=== PATIENT | female | born 1965 | race Two or more races ===

== ENCOUNTER 2016-12-31 19:01 | Emergency (ER) | payer OTHER ==
[~2016-12-31] VITALS: Ht 170.2 cm; Wt 77.1 kg
[~2016-12-31 19:01] MED LIST: ALBU8.5H6 INH; FLUT12HF2 IH; GABA-586 PO
[2016-12-31 19:25] VITALS: BP 152/86
[2016-12-31] MEDS ORDERED: PROAIR RESPICL90 MCG IH (19:36)
[2016-12-31] MEDS ORDERED: AMOX875T PO (19:36)
[2016-12-31] MEDS ORDERED: BENZ100C PO (19:36)
--- NOTE | 2016-12-31 19:36 | PHYS DOC ---
Past Medical History Past Medical History: Asthma, Bronchitis, Fibromyalgia Past Surgical History: Appendectomy, Hysterectomy, Tonsillectomy, Tubal ligation Alcohol Use: Occasionally Drug Use: None Adult General Chief Complaint Chief Complaint: Congestion HPI HPI Patient is a 51 year old female with history of fibromyalgia, bronchitis, who presents today with right ear pain sore throat and a cough for 1 week. Patient denies any chest pain or shortness of breath. She states she's had subjective fevers on and off for the last 1 week. She states she is currently a smoker. Review of Systems Review of Systems Constitutional: Subjective fevers Eyes: Denies change in visual acuity, redness, or eye pain [] HENT: Right ear pain and sore throat [] Respiratory: cough Cardiovascular: No additional information not addressed in HPI [] GI: Denies abdominal pain, nausea, vomiting, bloody stools or diarrhea [] : Denies dysuria or hematuria [] Musculoskeletal: Denies back pain or joint pain [] Integument: Denies rash or skin lesions [] Neurologic: Denies headache, focal weakness or sensory changes [] Endocrine: Denies polyuria or polydipsia [] Allergies Allergies Allergies Coded Allergies Type Severity Reaction Last Updated Verified No Known Drug Allergies 05/24/14 No Physical Exam Physical Exam Constitutional: Well developed, well nourished, no acute distress, non-toxic appearance. [] HENT: Normocephalic, atraumatic, bilateral external ears normal, oropharynx moist, no oral exudates, nose normal. [] Patient's voice is hoarse. Bilateral TM are mildly injected. Posterior pharynx with mild amount of erythema no exudate Eyes: PERRLA, EOMI, conjunctiva normal, no discharge. [] Neck: Normal range of motion, no tenderness, supple, no stridor. [] Cardiovascular:Heart rate regular rhythm, no murmur [] Lungs & Thorax: Bilateral breath sounds clear to auscultation [] Abdomen: Bowel sounds normal, soft, no tenderness, no masses, no pulsatile masses. [] Skin: Warm, dry, no erythema, no rash. [] Back: No tenderness, no CVA tenderness. [] Extremities: No tenderness, no cyanosis, no clubbing, ROM intact, no edema. [] Neurologic: Alert and oriented X 3, normal motor function, normal sensory function, no focal deficits noted. [] Psychologic: Affect normal, judgement normal, mood normal. [] Current Patient Data Vital Signs Vital Signs Date Time Temp Pulse Resp B/P Pulse Ox O2 Delivery O2 Flow Rate FiO2 12/31/16 19:25 99.1 103 20 98 Room Air 99.1 EKG EKG [] Radiology/Procedures Radiology/Procedures [] Course & Med Decision Making Course & Med Decision Making Pertinent Labs and Imaging studies reviewed. (See chart for details) Patient is in the ED with laryngitis, otitis media, bronchitis, and subjective fevers. Discharged with amoxicillin for 10 days. Encouraged to consider smoking cessation. Discharged with Tessalon Perles for coughing and albuterol inhaler. Follow-up with PCP in one week. Katharina Disclaimer Katharina Disclaimer This electronic medical record was generated, in whole or in part, using a voice recognition dictation system. Departure Departure Impression: Primary Impression: Otitis media Additional Impressions: Laryngitis Fever Bronchitis Smoking addiction Disposition: 01 HOME, SELF-CARE Condition: STABLE Referrals: NO PCP (PCP) Follow-up with your own doctor in one week Patient Instructions: Acute Bronchitis, Otitis Media, Adult Additional Instructions: You have laryngitis, otitis, and ear infection. Please complete your antibiotics. Use the rest of the medications as prescribed. Consider smoking cessation. Follow-up with your doctor in one week. Come back to the ED if symptoms worsen. Scripts Acetaminophen With Codeine (Tylenol With Codeine #3 Tablet)1 Each Tablet1 Tab PO PRN Q6HRS PRN PAIN #20 TAB Prov:PAUL WILD COAT OPERATOR INSULATOR 12/31/16 Amoxicillin 875 Mg Tablet1 Tab PO BID #20 TAB Prov:MUTOSKARAPAUL COAT OPERATOR INSULATOR 12/31/16 Benzonatate (Tessalon Perle)100 Mg Capsule1 Cap PO TID #30 CAP Prov:MUTUNGAPAUL COAT OPERATOR INSULATOR 12/31/16 Albuterol Sulfate (Proair Respiclick)90 Mcg Aer.pow.ba1 Puff IH PRN Q6HRS PRN SHORTNESS OF BREATH #1 INHALER Prov:NIRMALAPAUL FLOWERS COAT OPERATOR INSULATOR 12/31/16 Problem Qualifiers Primary Impression: Otitis media Otitis media type: other nonsuppurative Laterality: bilateral Chronicity: acute Recurrence: not specified as recurrent Qualified Code: H65.193 - Other acute nonsuppurative otitis media, bilateral Additional Impressions: Fever Fever type: unspecified Qualified Code: R50.9 - Fever, unspecified PAUL WILD APRN Dec 31, 2016 19:36
[2016-12-31] MEDS ORDERED: ACET-704 PO (19:40)
== END 2016-12-31 20:15 | disposition home or self-care (01) ==
LOC: ER 19:01
DX: J40 Bronchitis, not specified as acute or chronic (principal); H66.93 Otitis media, unspecified, bilateral; J04.0 Acute laryngitis; F17.200 Nicotine dependence, unspecified, uncomplicated; J45.909 Unspecified asthma, uncomplicated; M79.7 Fibromyalgia; Z90.89 Acquired absence of other organs
CPT/HCPCS: 99283

== ENCOUNTER 2017-04-04 15:26 | Emergency (ER) | payer OTHER ==
[~2017-04-04] VITALS: Ht 172.7 cm; Wt 77.1 kg
[~2017-04-04 15:26] MED LIST changes: +ACET-704 PO; +AMOX875T PO; +BENZ100C PO; +PROAIR RESPICL90 MCG IH
[2017-04-04 16:15] VITALS: BP 134/85
--- NOTE | 2017-04-04 17:08 | RAD ---
Three-view left foot radiographs 04/04/2017 Clinical history: Anterior left foot pain and discomfort with toe numbness. AP, oblique and lateral digital radiographs of the left foot were obtained. Mild hallux obvious deformity is noted. Mild to moderate degenerative changes are seen throughout the interphalangeal joints of the left foot. Moderate degenerative changes are seen involving the first MTP joint. Mild to moderate degenerative changes are seen involving the fifth MTP joint. Mild degenerative changes are seen involving the talonavicular, tarsometatarsal and metatarsal joints of the left foot. Moderate enthesophyte formation is seen involving the posterior left calcaneus. No fracture or dislocation left foot is seen. Impression: Degenerative changes are seen involving the left foot as outlined above. No acute osseous abnormality is seen.
--- NOTE | 2017-04-04 17:41 | PHYS DOC ---
Past Medical History Past Medical History: Asthma, Bronchitis, Fibromyalgia Past Surgical History: Appendectomy, Hysterectomy, Tonsillectomy, Tubal ligation Additional Past Surgical Histo: hernia Alcohol Use: Occasionally Drug Use: None Adult General Chief Complaint Chief Complaint: FOOT INJURY PAIN [facility] HPI Patient is a 51 year old presents emergency department stating she has having left foot pain and discomfort. Patient states that she went to stand up and start walking she developed foot pain on the metatarsal tarsal areas. She states that there is slight swelling with discoloration. There is no tingling to the toes although she states they are little numb. She is able to ambulate with a limp. She does have good sensation to all of her toes. She has not taken anything for pain and discomfort. Review of Systems Review of Systems Constitutional: Denies fever or chills [] Eyes: Denies change in visual acuity, redness, or eye pain [] HENT: Denies nasal congestion or sore throat [] Respiratory: Denies cough or shortness of breath [] Cardiovascular: No additional information not addressed in HPI [] GI: Denies abdominal pain, nausea, vomiting, bloody stools or diarrhea [] : Denies dysuria or hematuria [] Musculoskeletal: Denies back pain. C/o left foot pain and discomfort Integument: Denies rash or skin lesions [] Neurologic: Denies headache, focal weakness or sensory changes [] Endocrine: Denies polyuria or polydipsia [] Allergies Allergies Allergies Coded Allergies Type Severity Reaction Last Updated Verified No Known Drug Allergies 05/24/14 No Physical Exam Physical Exam Constitutional: Well developed, well nourished, no acute distress, non-toxic appearance. [] HENT: Normocephalic, atraumatic, bilateral external ears normal, oropharynx moist, no oral exudates, nose normal. [] Eyes: PERRLA, EOMI, conjunctiva normal, no discharge. [] Neck: Normal range of motion, no tenderness, supple, no stridor. [] Cardiovascular:Heart rate regular rhythm Lungs & Thorax: No respiratory distress noted Skin: Warm, dry, no erythema, no rash. [] Back: No tenderness Extremities: Left foot tenderness, no cyanosis, no clubbing, ROM intact, no edema. Patient has slight swelling noted over the metatarsal tarsal areas. Slight discoloration noted. Peripheral pulses are 2+ cap refill brisk less than 2 seconds. Patient with good sensation to the toes. Neurologic: Alert and oriented X 3, normal motor function, normal sensory function, no focal deficits noted. [] Psychologic: Affect normal, judgement normal, mood normal. [] Current Patient Data Vital Signs Vital Signs Date Time Temp Pulse Resp B/P (MAP) Pulse Ox O2 Delivery O2 Flow Rate FiO2 04/04/17 16:15 98.0 89 16 97 Room Air 98.0 EKG EKG [] Radiology/Procedures Radiology/Procedures [facility] [address] [place] [address] IMAGING REPORT Signed PATIENT: COLBY FOSTER ACCOUNT: [id number] : 1965 LOCATION: ER AGE: 51 SEX: F EXAM STATUS: REG ER ORD. PHYSICIAN: CARLOS BENAVIDES APRN REASON: left foot pain and discomfort PROCEDURE: FOOT LEFT 3V Three-view left foot radiographs 04/04/2017 Clinical history: Anterior left foot pain and discomfort with toe numbness. AP, oblique and lateral digital radiographs of the left foot were obtained. Mild hallux obvious deformity is noted. Mild to moderate degenerative changes are seen throughout the interphalangeal joints of the left foot. Moderate degenerative changes are seen involving the first MTP joint. Mild to moderate degenerative changes are seen involving the fifth MTP joint. Mild degenerative changes are seen involving the talonavicular, tarsometatarsal and metatarsal joints of the left foot. Moderate enthesophyte formation is seen involving the posterior left calcaneus. No fracture or dislocation left foot is seen. Impression: Degenerative changes are seen involving the left foot as outlined above. No acute osseous abnormality is seen. DICTATED and SIGNED BY: EDGAR GALVEZ MD DATE: 04/04/17 5628 CC: CARLOS BENAVIDES APRN; NO PCP; NON,STAFF ~ [] Course & Med Decision Making Course & Med Decision Making Pertinent Labs and Imaging studies reviewed. (See chart for details) X-ray were negative for any bony abnormalities. Patient will be recommended to use an Main wrap for pain and discomfort. Ice packs on 20 minutes off 20 minutes several times a day elevation as much as possible. She'll be provided with orthopedic name and number to follow up with. Signs and symptoms to return back to emergency department as been provided. [] Katharina Disclaimer Dragon Disclaimer This electronic medical record was generated, in whole or in part, using a voice recognition dictation system. Departure Departure Impression: Primary Impression: Left foot pain Disposition: HOME, SELF-CARE Condition: STABLE Referrals: NO PCP (PCP) Patient Instructions: Foot Contusion, [id number] Additional Instructions: Activity as tolerated. Tylenol or ibuprofen for pain and discomfort. Ice packs on 20 minutes off treatment several times a day. Elevation as much as possible. Follow-up with an orthopedic in the next week if he continued have pain and discomfort. Return back to emergency department sign symptoms of become worse. CARLOS BENAVIDES CLAIMS ADJUSTER Apr 04, 2017 17:41
== END 2017-04-04 17:51 | disposition home or self-care (01) ==
LOC: ER 15:26
DX: M79.672 Pain in left foot (principal); J45.909 Unspecified asthma, uncomplicated; M79.7 Fibromyalgia; Z90.710 Acquired absence of both cervix and uterus; Z90.49 Acquired absence of other specified parts of digestive tract; Z98.51 Tubal ligation status
CPT/HCPCS: 73630; 99284

== ENCOUNTER 2017-06-07 12:32 | Emergency (ER) | payer OTHER ==
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
[2017-06-07] MEDS ORDERED: IBUP-1007 PO (14:24)
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
[2017-06-07 14:45] VITALS: BP 172/89
[2017-06-07] MEDS ORDERED: IBUPROFEN 600 MG TABLET. PO ONE (15:00)
== END 2017-06-07 14:45 | disposition home or self-care (01) ==
LOC: ER 12:32
DX: J70.5 Respiratory conditions due to smoke inhalation (principal); F17.200 Nicotine dependence, unspecified, uncomplicated; R07.89 Other chest pain; J45.909 Unspecified asthma, uncomplicated; M79.7 Fibromyalgia; Z90.710 Acquired absence of both cervix and uterus; Z90.49 Acquired absence of other specified parts of digestive tract; Z98.51 Tubal ligation status
CPT/HCPCS: 71020; 99284-25

== ENCOUNTER 2017-06-14 19:35 | Inpatient (IN) | payer OTHER ==
[~2017-06-14] VITALS: Ht 167.6 cm; Wt 79.9 kg
[~2017-06-14 19:35] MED LIST changes: +IBUP-1007 PO
[2017-06-14] MEDS ORDERED: NITROGLYCERIN SUBLINGUAL 0.4 MG BOTTLE OF 25. SL PRN (19:45)
[2017-06-14] MEDS ORDERED: IPRATRPIUM/ALBUTEROL 0.5/2.5MG 3 ML NEBU. NEB ONE ×2 (19:45→20:45)
--- NOTE | 2017-06-14 19:45 | PHYS DOC ---
Past Medical History Past Medical History: Asthma, Bronchitis, Fibromyalgia Past Surgical History: Appendectomy, Hysterectomy, Tonsillectomy, Tubal ligation Additional Past Surgical Histo: hernia Alcohol Use: Occasionally Drug Use: None Adult General Chief Complaint Chief Complaint: CHEST PAIN HPI HPI Patient is a 51 year old -[place] female who presents with shortness of breath and right-sided chest pain. She states it started yesterday is been getting worse. She states she is also having pain in her right shoulder blade all the pains been constant since yesterday been progressively getting worse. She states is never gone away. She's been out of her albuterol inhaler the last month. She denies any history of coronary disease and states she's never had any kind of evaluation of her coronary arteries in the past. She does smoke cigarettes. EMS provided breathing treatment and around states her lungs sounds have cleared up. Review of Systems Review of Systems Constitutional: Denies fever or chills [] Eyes: Denies change in visual acuity, redness, or eye pain [] HENT: Denies nasal congestion or sore throat [] Respiratory: Positive for shortness of breath. Cardiovascular: No additional information not addressed in HPI [] GI: Denies abdominal pain, nausea, vomiting, bloody stools or diarrhea [] : Denies dysuria or hematuria [] Musculoskeletal: Denies back pain or joint pain [] Integument: Denies rash or skin lesions [] Neurologic: Denies headache, focal weakness or sensory changes [] Endocrine: Denies polyuria or polydipsia [] Current Medications Current Medications Current Medications Medications (Trade) Dose Ordered Sig/Marie Start Time Stop Time Status Last Admin Dose Admin Albuterol/ Ipratropium (Duoneb) 3 ml 1X ONCE 06/14/17 20:45 06/14/17 20:46 DC 06/14/17 20:51 3 ML Azithromycin 250 ml @ 250 mls/hr 1X ONCE 06/14/17 21:15 06/14/17 22:14 UNV Methylprednisolone Sodium Succinate (SOLU-Medrol 125MG VIAL) 125 mg 1X ONCE 06/14/17 20:45 06/14/17 20:46 DC 06/14/17 20:45 125 MG Nitroglycerin (Nitrostat) 0.4 mg PRN Q5MIN PRN 06/14/17 19:45 06/15/17 19:44 Allergies Allergies Allergies Coded Allergies Type Severity Reaction Last Updated Verified No Known Drug Allergies 05/24/14 No Physical Exam Physical Exam Constitutional: Well developed, well nourished, no acute distress, non-toxic appearance. [] HENT: Normocephalic, atraumatic, bilateral external ears normal, oropharynx moist, no oral exudates, nose normal. [] Eyes: PERRLA, EOMI, conjunctiva normal, no discharge. [] Neck: Normal range of motion, no tenderness, supple, no stridor. [] Cardiovascular:Heart rate regular rhythm, no murmur [] Lungs & Thorax: Decreased breath sounds bilaterally at the bases, no wheezing appreciated Abdomen: Bowel sounds normal, soft, no tenderness, no masses, no pulsatile masses. [] Skin: Warm, dry, no erythema, no rash. [] Back: Tender palpation between the scapula and midline, no obvious deformities or injuries noted, no CVA tenderness. [] Extremities: No tenderness, no cyanosis, no clubbing, ROM intact, no edema. [] Neurologic: Alert and oriented X 3, normal motor function, normal sensory function, no focal deficits noted. [] Psychologic: Affect normal, judgement normal, mood normal. [] Current Patient Data Vital Signs Vital Signs Date Time Temp Pulse Resp B/P (MAP) Pulse Ox O2 Delivery O2 Flow Rate FiO2 06/14/17 20:54 99 20 135/90 (105) Room Air 06/14/17 20:52 99 06/14/17 19:49 97.1 97.1 Lab Values Laboratory Tests Test 06/14/17 20:10 White Blood Count 6.6 x10^3/uL (4.0-11.0) Red Blood Count 4.36 x10^6/uL (3.50-5.40) Hemoglobin 14.2 g/dL (12.0-15.5) Hematocrit 42.1 % (36.0-47.0) Mean Corpuscular Volume 97 fL (79-100) Mean Corpuscular Hemoglobin 33 pg (25-35) Mean Corpuscular Hemoglobin Concent 34 g/dL (31-37) Red Cell Distribution Width 13.0 % (11.5-14.5) Platelet Count 182 x10^3/uL (140-400) Neutrophils (%) (Auto) 53 % (31-73) Lymphocytes (%) (Auto) 38 % (24-48) Monocytes (%) (Auto) 8 % (0-9) Eosinophils (%) (Auto) 1 % (0-3) Basophils (%) (Auto) 1 % (0-3) Neutrophils # (Auto) 3.5 x10^3uL (1.8-7.7) Lymphocytes # (Auto) 2.5 x10^3/uL (1.0-4.8) Monocytes # (Auto) 0.5 x10^3/uL (0.0-1.1) Eosinophils # (Auto) 0.0 x10^3/uL (0.0-0.7) Basophils # (Auto) 0.1 x10^3/uL (0.0-0.2) D-Dimer (Genie) < 0.27 ug/mlFEU Sodium Level 139 mmol/L (136-145) Potassium Level 3.3 mmol/L (3.5-5.1) L Chloride Level 102 mmol/L (98-107) Carbon Dioxide Level 24 mmol/L (21-32) Anion Gap 13 (6-14) Blood Urea Nitrogen 12 mg/dL (7-20) Creatinine 0.6 mg/dL (0.6-1.0) Estimated GFR (Cockcroft-Gault) 128.6 Glucose Level 116 mg/dL (70-99) H Calcium Level 8.9 mg/dL (8.5-10.1) Magnesium Level 1.9 mg/dL (1.8-2.4) Total Bilirubin 0.5 mg/dL (0.2-1.0) Direct Bilirubin 0.1 mg/dL (0.0-0.2) Aspartate Amino Transferase (AST) 12 U/L (15-37) L Alanine Aminotransferase (ALT) 18 U/L (14-59) Alkaline Phosphatase 66 U/L (46-116) Creatine Kinase 87 U/L (26-192) Creatine Kinase MB (Mass) 0.5 ng/mL (0.0-3.6) Creatine Kinase MB Relative Index 0.6 % (0-4) Troponin I Quantitative < 0.017 ng/mL (0.000-0.055) OL-Ucn-X-Type Natriuretic Peptide 20 pg/mL (0-124) Total Protein 7.4 g/dL (6.4-8.2) Albumin 3.8 g/dL (3.4-5.0) Lipase 136 U/L (73-393) Thyroid Stimulating Hormone (TSH) 2.530 uIU/mL (0.358-3.74) Laboratory Tests 06/14/17 20:10 Laboratory Tests 06/14/17 20:10 EKG EKG EKG shows sinus rhythm with first-degree AV block with a SD interval 222 ms, right axis deviation noted, no ST elevations, T-wave inversion noted in 1 and aVL, QTC 4 and 40 ms, as interpreted by me. Radiology/Procedures Radiology/Procedures One view chest x-ray does not show any focal consolidations, bony abnormality, pneumothorax, similar to one taken June 07, 2017, as interpreted by me. Impressions: Wheezing Tobacco abuse Atypical chest pain Course & Med Decision Making Course & Med Decision Making Pertinent Labs and Imaging studies reviewed. (See chart for details) Chest x-ray, EKG, basic labs are nonacute. She is received 2 rounds of breathing treatments and is requiring pain meds for at least a muscle spasm in her right posterior chest wall. D-dimer is negative. We'll admit for likely COPD exacerbation and will start azithromycin in addition we'll repeat serial troponins and give aspirin. Spoke with Dr. Vera, interim orders have been written. Dragon Disclaimer Dragon Disclaimer This electronic medical record was generated, in whole or in part, using a voice recognition dictation system. Departure Departure Impression: Primary Impression: Chest pain Additional Impression: Wheezing Disposition: ADMITTED INPATIENT Admitting Physician: Bijan Vera Condition: STABLE Referrals: NO PCP (PCP) Problem Qualifiers Primary Impression: Chest pain Chest pain type: unspecified Qualified Codes: R07.9 - Chest pain, unspecified MARCELLUS SEARS MD Jun 14, 2017 19:45
[2017-06-14 20:19] LABS: BASO # 0.1 x10^3/uL (0.0-0.2); BASO % 1 % (0-3); EOS % 1 % (0-3); HEMATOCRIT 42.1 % (36.0-47.0); HEMOGLOBIN 14.2 g/dL (12.0-15.5); LYMPH # 2.5 x10^3/uL (1.0-4.8); LYMPH % 38 % (24-48); MEAN CORPUSCULAR HEMOGLOBIN 33 pg (25-35); MEAN CORPUSCULAR HGB CONC 34 g/dL (31-37); MEAN CORPUSCULAR VOLUME 97 fL (79-100); MONO % 8 % (0-9); NEUT % 53 % (31-73); PLATELET COUNT 182 x10^3/uL (140-400); RED BLOOD COUNT 4.36 x10^6/uL (3.50-5.40); WHITE BLOOD COUNT 6.6 x10^3/uL (4.0-11.0)
[2017-06-14 20:28] LABS: CALCIUM 8.9 mg/dL (8.5-10.1); CREATININE 0.6 mg/dL (0.6-1.0); GFR 128.6; POTASSIUM 3.3 mmol/L (3.5-5.1)
[2017-06-14 20:36] LABS: ALBUMIN 3.8 g/dL (3.4-5.0); DIRECT BILIRUBIN 0.1 mg/dL (0.0-0.2); MAGNESIUM 1.9 mg/dL (1.8-2.4); TOTAL BILIRUBIN 0.5 mg/dL (0.2-1.0); TOTAL PROTEIN 7.4 g/dL (6.4-8.2)
[2017-06-14 20:42] LABS: CKMB MASS 0.5 ng/mL (0.0-3.6)
[2017-06-14] MEDS ORDERED: methylPREDNISolone SOD SUCC PF 125 MG/2 ML VIAL. IV ONE (20:45)
[2017-06-14] MEDS ORDERED: AZITHRMYCN 500MG IVPB FOR OMNI 250 ML IV ONE (21:30)
[2017-06-14] MEDS ORDERED: ONDANSETRON PF 4 MG/2 ML VIAL. IV PRN (21:30)
[2017-06-14] MEDS ORDERED: ASPIRIN 325 MG TABLET PO ONE (21:30)
[2017-06-14] MEDS: MORPHINE SULFATE 4 MG/ML DISP.SYRIN. IV PRN (22:02)
[2017-06-14 23:08] VITALS: BP 135/84
[2017-06-15] MEDS ORDERED: CHOL2000 PO (01:30)
[2017-06-15 03:22] VITALS: BP 111/71
[2017-06-15] MEDS: MORPHINE SULFATE 4 MG/ML DISP.SYRIN. IV PRN ×3 (04:19→20:16)
--- NOTE | 2017-06-15 06:12 | EKG ---
[facility] [address] [place] [address] Test Date: 2017-06-14 Test Time: 19:40:15 Pat Name: COLBY FOSTER Department: Room: [facility] Gender: F [employer] Operator: : [id number] Requested By: MARCELLUS SEARS Order Number: [id number] Reading MD: Krishna Amin Measurements Intervals [place] Rate: 91 P: 77 MT: 222 QRS: 172 QRSD: 74 T: 124 QT: 358 QTc: 442 Interpretive Statements SINUS RHYTHM PROLONGED MT INTERVAL LIMB LEAD MISPLACEMENT POSSIBLE SHREE-SEPTAL INFARCT Electronically Signed On 06-19-2017 7:16:32 CDT by Krishna Amin
[2017-06-15 06:52] VITALS: BP_SYST 112; BP_SYST 12; BP_DIAS 55
--- NOTE | 2017-06-15 07:36 | RAD ---
Chest x-ray Indication: Nontraumatic chest pain for one day. Right-sided pain radiating to the right axilla and arm. Technique: Portable AP upright chest x-ray Comparison: Multiple in films dating back to 2009 Findings: Heart is normal in size. Stable oval-shaped opacity seen in the right suprahilar region likely calcified lymph node. This is present dating back to 2010 chest x-ray. Lungs are clear. No pneumothorax or pleural effusion. Visualized bony thorax within normal limits. Impression: No acute cardiopulmonary process.
[2017-06-15 08:52] LABS: BASO % 0 % (0-3); EOS % 0 % (0-3); HEMATOCRIT 40.2 % (36.0-47.0); LYMPH # 0.7 x10^3/uL (1.0-4.8); LYMPH % 11 % (24-48); MEAN CORPUSCULAR HEMOGLOBIN 33 pg (25-35); MEAN CORPUSCULAR HGB CONC 35 g/dL (31-37); MEAN CORPUSCULAR VOLUME 94 fL (79-100); MONO % 2 % (0-9); NEUT % 87 % (31-73); PLATELET COUNT 179 x10^3/uL (140-400); RED BLOOD COUNT 4.27 x10^6/uL (3.50-5.40); WHITE BLOOD COUNT 6.3 x10^3/uL (4.0-11.0)
[2017-06-15 09:07] LABS: CALCIUM 8.7 mg/dL (8.5-10.1); CREATININE 0.6 mg/dL (0.6-1.0); GFR 128.6; POTASSIUM 4.2 mmol/L (3.5-5.1)
[2017-06-15 10:33] LABS: PLT ESTIMATE ADEQUATE (ADEQUATE)
[2017-06-15 10:46] VITALS: BP 118/82
[2017-06-15 14:29] VITALS: BP 118/75
[2017-06-15] MEDS ORDERED: ALBUTEROL SULFATE 2.5 MG/3 ML NEBU. NEB PRN (18:15)
[2017-06-15] MEDS ORDERED: NON FORMULARY ITEM (Albuterol Sulfate (Proair Respiclick) 1 PUFF) IH PRN (18:15)
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
[2017-06-15 19:05] VITALS: BP 126/95
--- NOTE | 2017-06-15 20:15 | PDOC ---
Provider Note Provider Note [id number] dyspne ae of copd acute bronchitis see orders LIZET KWON MD Jun 15, 2017 20:15
[2017-06-15] MEDS: BUDESONIDE 0.5 MG/2 ML NEBU. NEB SCH (20:18)
--- NOTE | 2017-06-15 20:39 | CONS ---
DATE OF CONSULTATION: 06/15/2017 I was asked to see this 51-year-old lady for shortness of breath, chest pain, cough, wheezing. HISTORY OF PRESENT ILLNESS: She does have history of [id number] smoking, continues to smoke about 1-1/2 pack per day. She has had chest tightness and shortness of breath and sharp right-sided chest pain for the past 3 days. She has had chills. She has nasal congestion. She denies gastroesophageal reflux symptoms. PAST MEDICAL HISTORY: COPD, asthma, fibromyalgia, hysterectomy, tonsillectomy, tubal ligation, appendectomy. ALLERGIES: No known drug allergies. MEDICATIONS: She did receive Solu-Medrol and nebulizer treatment in the Emergency Room. SOCIAL HISTORY: History of [id number] smoking, continues to smoke one and half pack per day. FAMILY HISTORY: Mother and sister had COPD. REVIEW OF SYSTEMS: As mentioned as above, other systems otherwise negative. PHYSICAL EXAMINATION: GENERAL: This is a well-developed lady. VITAL SIGNS: Her O2 saturation is 98%, respiratory rate 20, heart rate 76. Blood pressure 126/95, temperature 98.4. HEENT: Normocephalic, atraumatic. Pupils equal, round, reactive to light. Throat is clear. Nose: There is inflamed mucosa. NECK: There is no JVD, lymphadenopathy or thyromegaly. CARDIOVASCULAR: Regular rate and rhythm. PMI is not displaced. CHEST: Inspection is normal. LUNGS: There is end- expiratory wheezing. Percussion is within normal limits. ABDOMEN: Soft. Bowel sounds are good. There is no mass. EXTREMITIES: There is no edema. SKIN: Chronic changes. NEUROLOGIC: Alert and oriented. LYMPHATICS: There is no lymphadenopathy. LABORATORY DATA: I reviewed the following lab data: Chest x-ray does not show infiltrate. There is suprahilar calcified lymph node. WBC 6.3, hemoglobin 14, platelets 179. Sodium 138, potassium 4.2, chloride 103, CO2 25, glucose 133, BUN 10, creatinine 0.6. D-dimer less than 0.27, which is within normal limits. IMPRESSION: 1. Dyspnea and CP. 2. Acute exacerbation of chronic obstructive pulmonary disease. 3. Acute bronchitis. 4. Rhinitis. 5. Tobacco habituation. PLAN AND RECOMMENDATIONS: 1. I had a long discussion with her regarding the smoking cessation. I have advised her to stop smoking forever. 2. Start Solu-Medrol 40 mg IV every 8. 3. Bronchodilator. 4. Inhaled corticosteroid. 5. Singulair. 6. Monitor respiratory status very closely. 7. The findings and recommendations were discussed with the patient and her sister. They understood and agreed to proceed with the plan. Thank you very much for allowing me to participate in care of this very nice lady. LIZET KWON M.D. DR: Tristen JOB#: [id number] / [id number] DAMI
[2017-06-15] MEDS ORDERED: MONTELUKAST SODIUM 10 MG TABLET. PO SCH (21:00)
[2017-06-15] MEDS ORDERED: AZITHROMYCIN 250 MG TABLET. PO ONE (21:00)
[2017-06-15 23:05] VITALS: BP 129/74
--- NOTE | 2017-06-16 00:37 | ACF ---
Admission Forms Criteria CARDIOLOGY GRG Clinical Indications for Admission to Inpatient Care ( [place]/check or initial the applicable condition/criteria) Hospital admission is needed for appropriate care of the patient because of ANY ONE of the following: [ ] I. Hemodynamic instability as indicated by ALL of the following (1)(2)(3) (4)(5)(6)(7)(8)(9)(10) [ ]a) Vital sign abnormality not readily corrected by appropriate treatment with 12-24 hours for ANY ONE: [ ]i) Hypotension that persists despite appropriate treatment (eg, volume repletion) [ ]ii) Tachycardiathat persists despite appropriate tx ( e.g., analgesia, fluids, sedation as indicated [ ]iii) Orthostatic vital sign changes that persists despite appropriate treatment (eg, volume repletion) [ ]b) Vital sign abnormailty that is severe indicated by ANY ONE of the following: [ ]i) Inadequate perfusion indicated by ANY ONE of the following: [ ] 1) Lactic acidosis (> 2 mmol/L) [ ] 2) New abnormal capillary refill (> 3 seconds) [ ] 3) Reduced urine output [ ] 4) New altered mental status [ ] 5) Myocardial Ischemia [ ] 6) Other metabolic acidosis (arterial pH <7.35 ) not otherwise explained. [ ]ii) Mean arterial pressure[A] less than 60 mm Hg [ ]iii) Mean arterial pressure[A] less than 70 mm Hg after 30 minutes of appropriate treatment (eg, fluid resuscitation) [ ]iv) Sustained heart rate greater than 120 beats per minute in adult or child 6 years or older[B] [ ]v) IV inotropic or vasopressor medication required to maintain adequate blood pressure or perfusion [ ] II. Severe heart failure as indicated by ANY ONE of the following(17)(18) [ ]a) Respiratory distress [ ]b) Hypotension [ ]c) Debilitating anasarca refractory to therapy (eg, tissue breakdown with infection)[C](19) [ ]d) Cardiac arrhythmias of immediate concern [ ]e) Myocardial ischemia [ ] III. Cardiac arrhythmias or findings of immediate concern indicated by ANY ONE of the following (21)(22): [ ] a) Heart rhythms that are inherently dangerous or unstable indicated by ANY ONE of the following (23)(24)(25): [ ] i) Resuscitated ventricular fibrillation or cardiac arrest [ ] ii) Ventricular escape rhythm [ ] iii) Sustained ventricular tachycardia (30 seconds or more of ventricular rhythm at greater than 100 beats per minute) [ ] iv) Nonsustained ventricular tachycardia and ANY ONE of the following: [ ] 1) Suspected cardiac ischemia as cause or consequence of ventricular tachycardia [ ] 2) Acute myocarditis [ ] b) Unstable cardiac conduction defects indicated by ANY ONE of the following(25)(26)(27) [ ] i) Type II second-degree atrioventricular block [ ]ii) Third-degree atrioventricular block [ ]iii) New-onset left bundle branch block with suspected myocardial ischemia [ ]c) Any heart rhythm and ANY ONE of the following (23)(24)(28)(29) (30) [ ] i) Continuous long-term ECG monitoring needed (e.g., initiation of drug requiring monitoring for more than 24 hours) [ ] ii) Patient has automatic implanted cardioverter defibrillator that is repeatedly firing, malfunctioning, or in need of immediate adjustment of settings beyond the scope of ambulatory or observation care [ ]d) Heart rhythms of concern due to ANY ONE of the following: [ ] i) Hypotension [ ] ii) Respiratory distress [ ] iii) Association with other significant symptoms (e.g., bradycardia with syncope or ongoing dizziness, supraventricular tachycardia with chest pain (28)(29)(31) [ ] IV. Monitoring for cardiac contusion beyond the scope of observation care needed [A](32)(33)(34) [ ] V. Surgical or device complication (e.g., valve replacement complication , ICD disfunction or pacemaker dysfunction) (49)(50)(51)(52)(53)(54) [ ] . Inpatient palliative care needed. [F](51)(52) Also use Inpatient Palliative Care Criteria [ ] VII. Nonbacterial thrombotic (marantic) endocarditis(43)(44)(55)(56)(57) [X] VIII. Cardiology condition, symptom, or finding for which emergency and observation care has failed or are not considered appropriate. [ ] IX. Acute valvular disease requiring inpatient as indicated by ANY ONE of the following (40)(41) [ ]a) Acute valvular regurgitation (42) [ ]b) Noninfectious valvulitis (43)(44) [ ]c) Obstructive valve thrombosis (45)(46) [ ]d) Paravalvular leak(47)(48) [ ]e) Other significant valvular disorder remaining after emergency or observation level of care (as appropriate) [ ]X. Pericardial disease requiring inpatient treatment as indicated by ANY ONE of the following (35)(36)(37)(38) [ ]a) Suspected tamponade [ ]b) Hemopericardium [ ]c) Other significant pericardial disorder remaining after emergency or observation level of care (as appropriate)(39) [ ] XI. Cardiac ischemia beyond scope of emergency and observation care. [ ] XII. Cyanotic heart disease requiring inpatient care as indicated by 1 or more of the following(58)(59)(60): [ ]a) Acute onset of hypoxemia [ ]b) Exacerbation [ ] XIII. Hypertension requiring inpatient treatment as indicated by ANYONE of the following(11)(12)(13)(14): [ ]a) Severe hypertension (SBP greater than 180 mm Hg or DBP greater than 110 mm Hg, or greater than the 95th percentile for age, gender, and height in pediatric patients) that cannot be controlled (eg, to SBP less than 160 mm Hg and DBP less than 100 mm Hg) by emergency department or observation care treatment(15) [ ]b) Acute end organ damage secondary to hypertension (SBP greater than 140 mm Hg or DBP greater than 90 mm Hg) as indicated by ANYONE of the following: [ ] i) Hypertensive encephalopathy (eg, Altered mental status)(16) [ ] ii) Cerebral infarction [ ] iii) Intracranial hemorrhage [ ] iv) Myocardial ischemia or infarction [ ] v) Heart failure (eg, pulmonary edema) [ ] vi) Aortic dissection [ ] vii) Increased creatinine (new) with reduction of more than 50% in estimated glomerular filtration rate from baseline [ ] viii) Papilledema [ ] ix) Retinal hemorrhage [ ] x) Microangiopathic hemolytic anemia [ ] xi) Seizure [ ] xii) Other significant finding secondary to hypertension [ ] XIV. Complications of transplanted heart indicated by ANY ONE of the following(61): [ ]a) Acute graft rejection requiring inpatient management (eg, intravenous imunosuppression)(62)(63) [ ]b) Acute graft heart failure indicated by ANY ONE of the following(64): [ ] i) Hemodynamic instability [ ] ii) Cardiac arrhythmias of immediate concern [ ] iii) Pulmonary edema that is very severe (eg, mechanical ventilation needed, imminent or likely, need for 100% oxygen to keep oxygen saturation above 90%) [ ] iv) Pulmonary edema that is persistent as indicated by ALL of the following: [ ] 1) New need for oxygen therapy to keep oxygen saturation above 90 % (or increased FiO2 need from baseline) [ ] 2) Has not improved sufficiently with emergency department or observation care IV diuretics or other heart failure treatments[E]. [ ] iv) Altered mental status that is severe or persistent [ ] iv) Increased creatinine (new on laboratory test) with reduction of more than 50% in estimated glomerular filtration rate from baseline [ ] iv) Progressively (ongoing) rising creatinine (known from past laboratory test) with reduction of more than 25% in estimated glomerular filtration rate from baseline [ ] iv) Acute renal failure [ ] iv) Acute peripheral ischemia (eg, examination shows pulseless, cool, mottled, or cyanotic extremity) [ ] iv) Pulmonary artery catheter monitoring needed [ ] iv) Other sign or symptom of heart failure requiring inpatient treatment (ie, too severe or not responsive to outpatient and observation care treatment) [ ]c) Infection requiring inpatient management (eg, Hemodynamic instability, need for intravenous antimicrobial treatment)(66)(67)(68)(69)(70) [ ]d) Cardiac allograft vasculopathy requiring inpatient management (eg evidence of cardiacischemia)(71) [ ]e) Other complication of transplanted heart (eg, stroke, severe pulmonary hypertension, severe valvular dysfunction) requiring inpatient management(72) The original [email or web address] content created by [email or web address] has been revised. The portions of the content which have been revised are identified through the use of italic text, and [facility] has neither reviewed nor approved the modified material. All other unmodified content is copyright [facility] [email or web address]. Please see references footnoted in the original [email or web address] edition 2014 Admission Criteria Met?: Yes LUIS M RAGSDALE Jun 16, 2017 00:37
[2017-06-16 03:05] VITALS: BP 115/80
[2017-06-16 05:37] LABS: BASO % 1 % (0-3); EOS % 0 % (0-3); HEMATOCRIT 40.4 % (36.0-47.0); HEMOGLOBIN 13.7 g/dL (12.0-15.5); LYMPH # 2.4 x10^3/uL (1.0-4.8); LYMPH % 32 % (24-48); MEAN CORPUSCULAR HEMOGLOBIN 32 pg (25-35); MEAN CORPUSCULAR HGB CONC 34 g/dL (31-37); MEAN CORPUSCULAR VOLUME 95 fL (79-100); MONO % 8 % (0-9); NEUT % 59 % (31-73); PLATELET COUNT 182 x10^3/uL (140-400); RED BLOOD COUNT 4.24 x10^6/uL (3.50-5.40); RED CELL DISTRIBUTION WIDTH 12.9 % (11.5-14.5); WHITE BLOOD COUNT 7.5 x10^3/uL (4.0-11.0)
[2017-06-16] MEDS ORDERED: methylPREDNISolone SOD SUCC PF 40 MG/ML VIAL. IV SCH (06:00)
[2017-06-16 06:11] LABS: CALCIUM 8.8 mg/dL (8.5-10.1); CREATININE 0.6 mg/dL (0.6-1.0); GFR 128.6; POTASSIUM 4.1 mmol/L (3.5-5.1)
[2017-06-16 07:06] VITALS: BP 118/84
[2017-06-16] MEDS: IPRATRPIUM/ALBUTEROL 0.5/2.5MG 3 ML NEBU. NEB SCH ×4 (07:30→19:13)
[2017-06-16] MEDS: BUDESONIDE 0.5 MG/2 ML NEBU. NEB SCH ×2 (07:30→19:14)
[2017-06-16] MEDS ORDERED: CHOLECALCIFEROL (VITAMIN D3) 1,000 UNIT TABLET PO SCH (09:00)
[2017-06-16 10:43] VITALS: BP 120/81
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
--- NOTE | 2017-06-16 12:35 | PDOC ---
PULMONARY PROGRESS NOTES Subjective no cp, sob, cough better, no sputum Vitals Vital Signs Date Time Temp Pulse Resp B/P (MAP) Pulse Ox O2 Delivery O2 Flow Rate FiO2 06/16/17 11:54 Room Air 06/16/17 10:43 98.5 97 17 120/81 (94) 96 98.5 ROS: No Nausea, No Chest Pain General: Alert, Oriented X4 HEENT: Other (nc at perrl nose throat clear) Lungs: Clear Cardiovascular: S1, S2 Abdomen: Soft, Non-tender Neuro Exam: Alert Extremities: No Edema Skin: Warm Labs Laboratory Tests Test 06/14/17 20:10 06/15/17 08:15 06/15/17 14:00 06/15/17 21:00 White Blood Count 6.6 x10^3/uL (4.0-11.0) 6.3 x10^3/uL (4.0-11.0) Red Blood Count 4.36 x10^6/uL (3.50-5.40) 4.27 x10^6/uL (3.50-5.40) Hemoglobin 14.2 g/dL (12.0-15.5) 14.0 g/dL (12.0-15.5) Hematocrit 42.1 % (36.0-47.0) 40.2 % (36.0-47.0) Mean Corpuscular Volume 97 fL (79-100) 94 fL (79-100) Mean Corpuscular Hemoglobin 33 pg (25-35) 33 pg (25-35) Mean Corpuscular Hemoglobin Concent 34 g/dL (31-37) 35 g/dL (31-37) Red Cell Distribution Width 13.0 % (11.5-14.5) 13.0 % (11.5-14.5) Platelet Count 182 x10^3/uL (140-400) 179 x10^3/uL (140-400) Neutrophils (%) (Auto) 53 % (31-73) 87 % (31-73) Lymphocytes (%) (Auto) 38 % (24-48) 11 % (24-48) Monocytes (%) (Auto) 8 % (0-9) 2 % (0-9) Eosinophils (%) (Auto) 1 % (0-3) 0 % (0-3) Basophils (%) (Auto) 1 % (0-3) 0 % (0-3) Neutrophils # (Auto) 3.5 x10^3uL (1.8-7.7) 5.5 x10^3uL (1.8-7.7) Lymphocytes # (Auto) 2.5 x10^3/uL (1.0-4.8) 0.7 x10^3/uL (1.0-4.8) Monocytes # (Auto) 0.5 x10^3/uL (0.0-1.1) 0.1 x10^3/uL (0.0-1.1) Eosinophils # (Auto) 0.0 x10^3/uL (0.0-0.7) 0.0 x10^3/uL (0.0-0.7) Basophils # (Auto) 0.1 x10^3/uL (0.0-0.2) 0.0 x10^3/uL (0.0-0.2) D-Dimer (Genie) < 0.27 ug/mlFEU Sodium Level 139 mmol/L (136-145) 138 mmol/L (136-145) Potassium Level 3.3 mmol/L (3.5-5.1) 4.2 mmol/L (3.5-5.1) Chloride Level 102 mmol/L (98-107) 103 mmol/L (98-107) Carbon Dioxide Level 24 mmol/L (21-32) 25 mmol/L (21-32) Anion Gap 13 (6-14) 10 (6-14) Blood Urea Nitrogen 12 mg/dL (7-20) 10 mg/dL (7-20) Creatinine 0.6 mg/dL (0.6-1.0) 0.6 mg/dL (0.6-1.0) Estimated GFR (Cockcroft-Gault) 128.6 128.6 Glucose Level 116 mg/dL (70-99) 133 mg/dL (70-99) Calcium Level 8.9 mg/dL (8.5-10.1) 8.7 mg/dL (8.5-10.1) Magnesium Level 1.9 mg/dL (1.8-2.4) Total Bilirubin 0.5 mg/dL (0.2-1.0) Direct Bilirubin 0.1 mg/dL (0.0-0.2) Aspartate Amino Transf (AST/SGOT) 12 U/L (15-37) Alanine Aminotransferase (ALT/SGPT) 18 U/L (14-59) Alkaline Phosphatase 66 U/L (46-116) Creatine Kinase 87 U/L (26-192) Creatine Kinase MB (Mass) 0.5 ng/mL (0.0-3.6) Creatine Kinase MB Relative Index 0.6 % (0-4) Troponin I Quantitative < 0.017 ng/mL (0.000-0.055) < 0.017 ng/mL (0.000-0.055) < 0.017 ng/mL (0.000-0.055) < 0.017 ng/mL (0.000-0.055) IG-Lwh-P-Type Natriuretic Peptide 20 pg/mL (0-124) Total Protein 7.4 g/dL (6.4-8.2) Albumin 3.8 g/dL (3.4-5.0) Lipase 136 U/L (73-393) Thyroid Stimulating Hormone (TSH) 2.530 uIU/mL (0.358-3.74) Segmented Neutrophils % 88 % (35-66) Lymphocytes % 11 % (24-48) Monocytes % 1 % (0-10) Platelet Estimate Adequate (ADEQUATE) Test 06/16/17 05:00 White Blood Count 7.5 x10^3/uL (4.0-11.0) Red Blood Count 4.24 x10^6/uL (3.50-5.40) Hemoglobin 13.7 g/dL (12.0-15.5) Hematocrit 40.4 % (36.0-47.0) Mean Corpuscular Volume 95 fL (79-100) Mean Corpuscular Hemoglobin 32 pg (25-35) Mean Corpuscular Hemoglobin Concent 34 g/dL (31-37) Red Cell Distribution Width 12.9 % (11.5-14.5) Platelet Count 182 x10^3/uL (140-400) Neutrophils (%) (Auto) 59 % (31-73) Lymphocytes (%) (Auto) 32 % (24-48) Monocytes (%) (Auto) 8 % (0-9) Eosinophils (%) (Auto) 0 % (0-3) Basophils (%) (Auto) 1 % (0-3) Neutrophils # (Auto) 4.5 x10^3uL (1.8-7.7) Lymphocytes # (Auto) 2.4 x10^3/uL (1.0-4.8) Monocytes # (Auto) 0.6 x10^3/uL (0.0-1.1) Eosinophils # (Auto) 0.0 x10^3/uL (0.0-0.7) Basophils # (Auto) 0.0 x10^3/uL (0.0-0.2) Sodium Level 140 mmol/L (136-145) Potassium Level 4.1 mmol/L (3.5-5.1) Chloride Level 103 mmol/L (98-107) Carbon Dioxide Level 26 mmol/L (21-32) Anion Gap 11 (6-14) Blood Urea Nitrogen 16 mg/dL (7-20) Creatinine 0.6 mg/dL (0.6-1.0) Estimated GFR (Cockcroft-Gault) 128.6 Glucose Level 72 mg/dL (70-99) Calcium Level 8.8 mg/dL (8.5-10.1) Laboratory Tests Test 06/15/17 14:00 06/15/17 21:00 06/16/17 05:00 Troponin I Quantitative < 0.017 ng/mL (0.000-0.055) < 0.017 ng/mL (0.000-0.055) White Blood Count 7.5 x10^3/uL (4.0-11.0) Red Blood Count 4.24 x10^6/uL (3.50-5.40) Hemoglobin 13.7 g/dL (12.0-15.5) Hematocrit 40.4 % (36.0-47.0) Mean Corpuscular Volume 95 fL (79-100) Mean Corpuscular Hemoglobin 32 pg (25-35) Mean Corpuscular Hemoglobin Concent 34 g/dL (31-37) Red Cell Distribution Width 12.9 % (11.5-14.5) Platelet Count 182 x10^3/uL (140-400) Neutrophils (%) (Auto) 59 % (31-73) Lymphocytes (%) (Auto) 32 % (24-48) Monocytes (%) (Auto) 8 % (0-9) Eosinophils (%) (Auto) 0 % (0-3) Basophils (%) (Auto) 1 % (0-3) Neutrophils # (Auto) 4.5 x10^3uL (1.8-7.7) Lymphocytes # (Auto) 2.4 x10^3/uL (1.0-4.8) Monocytes # (Auto) 0.6 x10^3/uL (0.0-1.1) Eosinophils # (Auto) 0.0 x10^3/uL (0.0-0.7) Basophils # (Auto) 0.0 x10^3/uL (0.0-0.2) Sodium Level 140 mmol/L (136-145) Potassium Level 4.1 mmol/L (3.5-5.1) Chloride Level 103 mmol/L (98-107) Carbon Dioxide Level 26 mmol/L (21-32) Anion Gap 11 (6-14) Blood Urea Nitrogen 16 mg/dL (7-20) Creatinine 0.6 mg/dL (0.6-1.0) Estimated GFR (Cockcroft-Gault) 128.6 Glucose Level 72 mg/dL (70-99) Calcium Level 8.8 mg/dL (8.5-10.1) Medications Active Scripts Medications Dose Route/Sig Max Daily Dose Days Date Category Vitamin D (Cholecalciferol (Vitamin D3)) 2,000 Unit Capsule 1 Cap PO DAILY 06/15/17 Reported Proair Respiclick (Albuterol Sulfate) 90 Mcg Aer.pow.ba 1 Puff IH PRN Q6HRS PRN 12/31/16 Rx Impression . IMPRESSION: 1. Dyspnea, CP. 2. Acute exacerbation of chronic obstructive pulmonary disease. 3. Acute bronchitis. 4. Rhinitis. 5. Tobacco habituation. Plan . PLAN AND RECOMMENDATIONS: 1. I had a long discussion with her regarding the smoking cessation. I have advised her to stop smoking forever. 2. change Solu-Medrol to prednisone 40 mg daily w taper by 10 mg q 3d 3. Bronchodilator. 4. Inhaled corticosteroid. 5. Singulair. 6. Monitor respiratory status very closely. 7. abx for total of 7 days The findings and recommendations were discussed with the patient and her rn. They understood and agreed to proceed with the plan. LIZET KWON MD Jun 16, 2017 12:35
[2017-06-16] MEDS ORDERED: predniSONE 10 MG TABLET PO SCH (13:00)
[2017-06-16 14:50] VITALS: BP 124/73
[2017-06-16] MEDS ORDERED: AZITHROMYCIN 250 MG TABLET. PO SCH (21:00)
== END 2017-06-16 19:30 | disposition home or self-care (01) | DRG 192 ==
LOC: ER 19:35 → 6 SOUTH 21:00
PROVIDERS: ADMIT Internal Medicine; ATTEND Internal Medicine
DX: J44.0 Chronic obstructive pulmonary disease with (acute) lower respiratory infection (principal); F17.200 Nicotine dependence, unspecified, uncomplicated; J44.1 Chronic obstructive pulmonary disease with (acute) exacerbation; J20.9 Acute bronchitis, unspecified; J31.0 Chronic rhinitis; M79.7 Fibromyalgia; Z82.49 Family history of ischemic heart disease and other diseases of the circulatory system; Z82.5 Family history of asthma and other chronic lower respiratory diseases; Z90.49 Acquired absence of other specified parts of digestive tract; Z90.710 Acquired absence of both cervix and uterus; Z98.51 Tubal ligation status; Z90.89 Acquired absence of other organs
CPT/HCPCS: 36415; 71010; 80048; 80076; 82553; 83690; 83735; 83880; 84443; 84484; 85007; 85025; 85379; 93005; 94250; 94640; 94760; 96361; 96374; 96375; J0456; J2270; J2405; J2920; J2930; J7512; J7613; J7620; J7626; Q0144; 99285-25

== ENCOUNTER 2018-02-19 13:05 | Emergency (ER) | payer SELFPAY, OTHER ==
[2018-02-19] MEDS ORDERED: IOHEXOL 300 MG/ML 100ML VIAL. IV (13:30)
[2018-02-19 13:31] LABS: BILIRUBIN,URINE NEGATIVE (NEG); CLARITY,URINE CLEAR; COLOR,URINE AMBER; GLUCOSE,URINE NEGATIVE (NEG); NITRITE,URINE NEGATIVE (NEG); PROTEIN,URINE NEGATIVE (NEG-TRACE)
[2018-02-19 13:33] LABS: ADD MAN DIFF? NO
[2018-02-19 13:35] LABS: BASO % 1 % (0-3); EOS % 0 % (0-3); HEMOGLOBIN 13.9 g/dL (12.0-15.5); LYMPH # 1.6 x10^3/uL (1.0-4.8); LYMPH % 31 % (24-48); MEAN CORPUSCULAR HEMOGLOBIN 33 pg (25-35); MEAN CORPUSCULAR HGB CONC 34 g/dL (31-37); MEAN CORPUSCULAR VOLUME 97 fL (79-100); MONO # 0.3 x10^3/uL (0.0-1.1); MONO % 7 % (0-9); NEUT # 3.2 x10^3uL (1.8-7.7); NEUT % 61 % (31-73); PLATELET COUNT 210 x10^3/uL (140-400); RED BLOOD COUNT 4.25 x10^6/uL (3.50-5.40); RED CELL DISTRIBUTION WIDTH 14.2 % (11.5-14.5); WHITE BLOOD COUNT 5.3 x10^3/uL (4.0-11.0)
[2018-02-19 13:39] LABS: BACTERIA,URINE FEW /HPF (0-FEW); RBC,URINE RARE /HPF (0-2); SQUAMOUS EPITHELIAL CELL,UR FEW /LPF; WBC,URINE RARE /HPF (0-4)
[2018-02-19] MEDS ORDERED: CONTRAST GIVEN MC (13:45)
[2018-02-19 13:54] LABS: LACTIC ACID 0.9 mmol/L (0.4-2.0)
[2018-02-19 14:01] LABS: ANION GAP 9 (6-14); BLOOD UREA NITROGEN 12 mg/dL (7-20); BUN/CREATININE RATIO 17 (6-20); CALCIUM 8.9 mg/dL (8.5-10.1); CARBON DIOXIDE 29 mmol/L (21-32); CHLORIDE 105 mmol/L (98-107); CREATININE 0.7 mg/dL (0.6-1.0); GFR 107.2; GLUCOSE 91 mg/dL (70-99); POTASSIUM 3.9 mmol/L (3.5-5.1); SODIUM 143 mmol/L (136-145)
[2018-02-19 14:07] LABS: ALBUMIN 3.6 g/dL (3.4-5.0); ALK PHOS 66 U/L (46-116); ALT (SGPT) 25 U/L (14-59); AST (SGOT) 17 U/L (15-37); LIPASE 114 U/L (73-393); TOTAL BILIRUBIN 0.7 mg/dL (0.2-1.0); TOTAL PROTEIN 7.2 g/dL (6.4-8.2)
== END 2018-02-19 16:31 | disposition home or self-care (01) ==
LOC: ER 13:05
DX: R10.84 Generalized abdominal pain (principal); J45.909 Unspecified asthma, uncomplicated; F17.210 Nicotine dependence, cigarettes, uncomplicated; Z90.710 Acquired absence of both cervix and uterus; Z90.49 Acquired absence of other specified parts of digestive tract; Z79.899 Other long term (current) drug therapy
CPT/HCPCS: 36415; 74177; 80053; 81001; 83605; 83690; 85025; 93005; 99285

== ENCOUNTER → 2018-07-26 | Outpatient (CLI) | payer BC ==
[2018-02-19 16:31] VITALS: BP 143/87
[~2018-07-26] MED LIST changes: +CHOL2000 PO
--- NOTE | 2018-07-26 15:52 | RAD ---
DATE: 07/26/2018 EXAM: DIGITAL SCREEN BILAT W/CAD HISTORY: Routine screening COMPARISON: None available This study was interpreted with the benefit of Computerized Aided Detection (CAD). Breast Density: SCATTERED The breast parenchyma shows scattered fibroglandular densities. Breast parenchyma level B. FINDINGS: No breast mass or suspicious densities are seen. A couple of faint scattered microcalcifications are noted. No suspicious microcalcifications are seen. IMPRESSION: There is no mammographic evidence of malignancy in either breast. BI-RADS CATEGORY: 2 BENIGN FINDING(S) RECOMMENDED FOLLOW-UP: 12M 12 MONTH FOLLOW-UP PQRS compliance statement: Patient information was entered into a reminder system with a target due date for the next mammogram. Mammography is a sensitive method for finding small breast cancers, but it does not detect them all and is not a substitute for careful clinical examination. A negative mammogram does not negate a clinically suspicious finding and should not result in delay in biopsying a clinically suspicious abnormality. "Our facility is accredited by the [employer] Mammography Program."
== END | disposition home or self-care (01) ==
LOC: MAMMO 15:15
PROVIDERS: ATTEND Family Medicine
DX: Z12.31 Encounter for screening mammogram for malignant neoplasm of breast (principal)
CPT/HCPCS: 77067

== ENCOUNTER → 2018-08-09 | Day surgery (SDC) | payer BC ==
[~2018-08-09] MED LIST changes: +AMLO1CAP12 PO; +BUPR100T7 PO; +LIDOCAINE 1% PF 2 ML VIAL. ID PRN; +MIDAZOLAM HCL/PF 2 MG/2 ML VIAL. IV PRN; +PROPOFOL 20 ML IV ONE; +PROPOFOL 40 ML IV ONE; +fentaNYL PF VIAL 100 MCG/2 ML VIAL IV PRN
[2018-08-09] MEDS: IV RINGERS,LACTATED 1000ML 1,000 ML IV SCH (06:48)
[2018-08-09 08:28] VITALS: BP 119/68
--- NOTE | 2018-08-12 15:07 | PATHOLOGY ---
[facility] Accession Number: [id number] . 01 Material submitted: . RECTAL POLYP . 01 Clinical history: . Screening . 02 Diagnosis: Colorectal biopsy, rectal polyp: - Hyperplastic polyp showing fibrosis and chronic inflammation of lamina propria. (JPM:production counter; 08/12/2018) MBR/08/12/2018 . 02 Comment: There are no adenomatous changes or evidence of malignancy. (JPM:production counter; 08/12/2018) . 02 Electronically signed: . Jorge Luis Heredia MD, Pathologist NPI- [id number] . 01 Gross description: . Received in formalin labeled "Meenakshi Caba, rectal polyp," is a single segment of delcid soft tissue measuring 0.4 cm in maximum dimension. The specimen is entirely submitted in cassette A1. (TSD; 08/09/2018) TOB/TOB . 02 Pathologist provided ICD-10: K62.1 . 02 CPT . 831507 Specimen Comment: A courtesy copy of this report has been sent to Specimen Comment: [phone], . Specimen Comment: Report sent to / DR OSMAN Specimen Comment: A duplicate report has been generated due to demographic updates. Performed at: 01 [facility] [address], [place], [place] [id number] MD Peyman Pompa MD Phone: [phone] Performed at: 02 [facility] [address] [place], [place] [id number] MD Jorge Luis Heredia MD Phone: [phone]
== END | disposition home or self-care (01) ==
LOC: ENDOS 06:13
PROVIDERS: ATTEND Internal Medicine Gastroenterology
DX: Z12.11 Encounter for screening for malignant neoplasm of colon (principal); K62.1 Rectal polyp; K57.30 Diverticulosis of large intestine without perforation or abscess without bleeding; K64.0 First degree hemorrhoids; I10 Essential (primary) hypertension; M19.90 Unspecified osteoarthritis, unspecified site; D64.9 Anemia, unspecified; J43.9 Emphysema, unspecified; Z80.3 Family history of malignant neoplasm of breast; Z83.3 Family history of diabetes mellitus; Z82.49 Family history of ischemic heart disease and other diseases of the circulatory system; Z72.89 Other problems related to lifestyle; Z79.899 Other long term (current) drug therapy; Z90.710 Acquired absence of both cervix and uterus; Z98.890 Other specified postprocedural states
CPT/HCPCS: 45385; 88305; J2704; 45380

== ENCOUNTER 2019-02-25 10:22 | Emergency (ER) | payer BC ==
[~2019-02-25] VITALS: Ht 171.4 cm; Wt 88.5 kg
[~2019-02-25 10:22] MED LIST changes: -GABA-586 PO; +GABA300C18 PO; -LIDOCAINE 1% PF 2 ML VIAL. ID PRN; -MIDAZOLAM HCL/PF 2 MG/2 ML VIAL. IV PRN; -PROPOFOL 20 ML IV ONE; -PROPOFOL 40 ML IV ONE; -fentaNYL PF VIAL 100 MCG/2 ML VIAL IV PRN
[2019-02-25 11:03] VITALS: BP 139/90
[2019-02-25] MEDS ORDERED: IBUPROFEN 400 MG TABLET. PO ONE (11:15)
--- NOTE | 2019-02-25 12:04 | RAD ---
KNEE RIGHT 4V 02/25/2019 11:14 AM INDICATION: Pain in the right knee COMPARISON: None available. TECHNIQUE: 4 views of the right knee are provided. FINDINGS: There is no acute fracture or dislocation. Bone mineralization is within normal limits. Mild medial femorotibial joint space narrowing with marginal osteophytosis. Medial subcutaneous soft tissue swelling. There is a small knee joint effusion. Patellar enthesopathy is noted. There is no soft tissue gas or osseous erosion. IMPRESSION: No acute fracture or dislocation. Mild medial femorotibial osteoarthrosis. Small knee joint effusion. Electronically signed by: Phuong Coleman MD (02/25/2019 12:01 PM) [email or web address]
--- NOTE | 2019-02-25 12:07 | RAD ---
Right LOWER EXTREMITY ULTRASOUND WITH DOPPLER 02/25/2019 11:14 AM Clinical Information: Calf pain for one month. Comparison: None. Technique: Multiple grayscale, color Doppler, and spectral Doppler sonographic images of the lower extremity venous structures were obtained. Findings: The right common femoral, femoral, and popliteal veins exhibit normal compression, respiratory phasicity, and augmentation. No intraluminal thrombi are identified. Color Doppler flow is demonstrated in the right posterior tibial veins. Greater saphenous vein is patent. Right popliteal fossa cyst measuring 6.1 x 4.6 x 2.9 cm. Impression: 1. No evidence of deep venous thrombosis. 2. Simple appearing right popliteal fossa cyst measuring 6.1 x 4.6 x 2.19. Electronically signed by: Phuong Coleman MD (02/25/2019 12:04 PM) [email or web address]
[2019-02-25] MEDS ORDERED: HYDR-3164 PO (12:27)
[2019-02-25] MEDS ORDERED: CYCL10TA2 PO (12:27)
--- NOTE | 2019-02-25 12:27 | PHYS DOC ---
Past Medical History Past Medical History: Asthma, Bronchitis, COPD, Fibromyalgia Past Surgical History: Appendectomy, Hysterectomy, Tonsillectomy, Tubal ligation Additional Past Surgical Histo: hernia Alcohol Use: Occasionally Drug Use: None Adult General Chief Complaint Chief Complaint: LOWER EXT PAIN HPI HPI Patient is a 53 year old female who presents with complaining of right leg pain for more than 3 week as a constant pain that getting worse with activity. Patient states she has a standing and walking for more than 20 years and never had this pain. Patient denies focal neuro deficit, fever and chills, nausea and vomiting, chest pain and shortness of breath. Review of Systems Review of Systems Constitutional: Denies fever or chills [] Eyes: Denies change in visual acuity, redness, or eye pain [] HENT: Denies nasal congestion or sore throat [] Respiratory: Denies cough or shortness of breath [] Cardiovascular: No additional information not addressed in HPI [] GI: Denies abdominal pain, nausea, vomiting, bloody stools or diarrhea [] : Denies dysuria or hematuria [] Musculoskeletal: Denies back pain, reports joint pain [] Integument: Denies rash or skin lesions [] Neurologic: Denies headache, focal weakness or sensory changes [] Endocrine: Denies polyuria or polydipsia [] All other systems were reviewed and found to be within normal limits, except as documented in this note. Current Medications Current Medications Current Medications Medications (Trade) Dose Ordered Sig/Marie Start Time Stop Time Status Last Admin Dose Admin Ibuprofen (Motrin) 800 mg 1X ONCE 02/25/19 11:15 02/25/19 11:17 DC 02/25/19 12:00 800 MG Allergies Allergies Allergies Coded Allergies Type Severity Reaction Last Updated Verified No Known Drug Allergies 08/09/18 No Physical Exam Physical Exam Constitutional: Well developed, well nourished, mild distress, non-toxic appearance. [] HENT: Normocephalic, atraumatic. Eyes: PERRLA, EOMI, conjunctiva normal, no discharge. [] Neck: Normal range of motion, no tenderness, supple, no stridor. [] Cardiovascular:Heart rate regular rhythm, no murmur [] Lungs & Thorax: Bilateral breath sounds clear to auscultation [] Skin: Warm, dry, no erythema, no rash. [] Back: No tenderness, no CVA tenderness. [] Extremities: Right lower extremity without deformity, trace edema of lower legs with negative Homans sign, no cyanosis, no clubbing, ROM intact, no edema. [] Neurologic: Alert and oriented X 3, normal motor function, normal sensory function, no focal deficits noted. [] Psychologic: Affect normal, judgement normal, mood normal. [] Current Patient Data Vital Signs Vital Signs Date Time Temp Pulse Resp B/P (MAP) Pulse Ox O2 Delivery O2 Flow Rate FiO2 02/25/19 11:03 98.0 82 16 139/90 (106) 99 Room Air 98.0 EKG EKG [] Radiology/Procedures Radiology/Procedures [][address] [address] IMAGING REPORT Signed PATIENT: COLBY FOSTER ACCOUNT: [id number] : 1965 LOCATION: ER AGE: 53 SEX: F EXAM STATUS: REG ER ORD. PHYSICIAN: SABINO THOMAS MD REASON: pain right knee, no injury PROCEDURE: KNEE RIGHT 4V KNEE RIGHT 4V 02/25/2019 11:14 AM INDICATION: Pain in the right knee COMPARISON: None available. TECHNIQUE: 4 views of the right knee are provided. FINDINGS: There is no acute fracture or dislocation. Bone mineralization is within normal limits. Mild medial femorotibial joint space narrowing with marginal osteophytosis. Medial subcutaneous soft tissue swelling. There is a small knee joint effusion. Patellar enthesopathy is noted. There is no soft tissue gas or osseous erosion. IMPRESSION: No acute fracture or dislocation. Mild medial femorotibial osteoarthrosis. Small knee joint effusion. Electronically signed by: Roman Landry MD (02/25/2019 12:01 PM) [email or web address] [id number] [place], [place] [id number] IMAGING REPORT Signed PATIENT: COLBY FOSTER ACCOUNT: [id number] : 1965 LOCATION: ER AGE: 53 SEX: F EXAM STATUS: REG ER ORD. PHYSICIAN: SABINO THOMAS MD REASON: calf pain for 1 month PROCEDURE: VENOUS LOWER EXTREMITY RIGHT Right LOWER EXTREMITY ULTRASOUND WITH DOPPLER 02/25/2019 11:14 AM Clinical Information: Calf pain for one month. Comparison: None. Technique: Multiple grayscale, color Doppler, and spectral Doppler sonographic images of the lower extremity venous structures were obtained. Findings: The right common femoral, femoral, and popliteal veins exhibit normal compression, respiratory phasicity, and augmentation. No intraluminal thrombi are identified. Color Doppler flow is demonstrated in the right posterior tibial veins. Greater saphenous vein is patent. Right popliteal fossa cyst measuring 6.1 x 4.6 x 2.9 cm. Impression: 1. No evidence of deep venous thrombosis. 2. Simple appearing right popliteal fossa cyst measuring 6.1 x 4.6 x 2.19. Electronically signed by: Roman Landry MD (02/25/2019 12:04 PM) [facility] DICTATED and SIGNED BY: ROMAN LANDRY MD DATE: 02/25/19 120 DICTATED and SIGNED BY: ROMAN LANDRY MD DATE: 02/25/19 1201 Course & Med Decision Making Course & Med Decision Making Pertinent Imaging studies reviewed. (See chart for details) discharge: I've spoken with the patient and/or caregivers. I've explained the patient's condition, diagnosis and treatment plan based on information available to me at this time. I've answered the patient's and/or caregivers questions and addressed any concerns. The patient and/or caregivers have a good understanding the patient's diagnosis, condition and treatment plan as can be expected at this point. Vital signs have been stabilized. The patient's condition is stable for discharge from the emergency department. The patient will pursue further outpatient evaluation with her primary care provider or other designated consulting physician as outlined in the discharge instructions. Patient and/or caregivers are agreeable to this plan of care and follow-up instructions have been explained in detail. The patient and/or caregivers have received these instructions in written format and expressed understanding of these discharge instructions. The patient and her caregivers are aware that if any significant change in condition or worsening of symptoms should prompt him to immediately return to this of the closest emergency department. If an emergent department is not readily available I would encourage him to call 911. Katharina Disclaimer Katharina Disclaimer This electronic medical record was generated, in whole or in part, using a voice recognition dictation system. Departure Departure Impression: Primary Impression: Right leg pain Additional Impressions: Tobacco abuse Tobacco abuse counseling Disposition: HOME, SELF-CARE (at 1223) Condition: STABLE Referrals: FLOR OSMAN MD (PCP) Patient Instructions: Arthritis, Degenerative-Brief Additional Instructions: Apply ice on the affected area Follow-up with your primary care physician in 3-5 days Return to ER if not getting better Scripts Hydrocodone/Apap 5-325 (NORCO 5-325 TABLET) 1 Each Tablet 1 TAB PO PRN Q6HRS PRN for PAIN, #14 TAB 0 Refills Prov: SABINO THOMAS MD 02/25/19 Cyclobenzaprine Hcl (CYCLOBENZAPRINE HCL) 10 Mg Tablet 1 TAB PO TID for muscle pain, #30 TAB Prov: SABINO THOMAS MD 02/25/19 Problem Qualifiers SABINO THOMAS MD February 25, 2019 12:27
== END 2019-02-25 12:35 | disposition home or self-care (01) ==
LOC: ER 10:22
DX: M25.461 Effusion, right knee (principal); M79.604 Pain in right leg; J44.9 Chronic obstructive pulmonary disease, unspecified; Z90.89 Acquired absence of other organs; Z90.710 Acquired absence of both cervix and uterus; Z98.51 Tubal ligation status
CPT/HCPCS: 73564; 93971; 99284-25

== ENCOUNTER 2019-09-25 07:43 | Emergency (ER) | payer SELFPAY ==
[~2019-09-25] VITALS: Ht 170.2 cm; Wt 77.1 kg
[~2019-09-25 07:43] MED LIST changes: -AMLO1CAP12 PO; +AMLO1CAP13 PO; +CYCL10TA2 PO; +HYDR-3164 PO
[2019-09-25] MEDS ORDERED: IV NORMAL SALINE 1000ML BAG 1,000 ML IV SCH (08:28)
[2019-09-25] MEDS ORDERED: IPRATRPIUM/ALBUTEROL 0.5/2.5MG 3 ML NEBU. NEB ONE (08:30)
[2019-09-25] MEDS ORDERED: KETOROLAC 30 MG/ML VIAL. IVP ONE (08:30)
[2019-09-25] MEDS ORDERED: methylPREDNISolone SOD SUCC PF 125 MG/2 ML VIAL. IV ONE (08:30)
[2019-09-25 08:42] LABS: BASO # 0.1 x10^3/uL (0.0-0.2); BASO % 1 % (0-3); EOS % 0 % (0-3); HEMATOCRIT 41.8 % (36.0-47.0); HEMOGLOBIN 13.8 g/dL (12.0-15.5); LYMPH # 1.3 x10^3/uL (1.0-4.8); LYMPH % 19 % (24-48); MEAN CORPUSCULAR HEMOGLOBIN 32 pg (25-35); MEAN CORPUSCULAR HGB CONC 33 g/dL (31-37); MEAN CORPUSCULAR VOLUME 98 fL (79-100); MONO # 0.4 x10^3/uL (0.0-1.1); MONO % 6 % (0-9); NEUT # 5.2 x10^3/uL (1.8-7.7); NEUT % 74 % (31-73); PLATELET COUNT 146 x10^3/uL (140-400); RED BLOOD COUNT 4.26 x10^6/uL (3.50-5.40); RED CELL DISTRIBUTION WIDTH 13.6 % (11.5-14.5)
[2019-09-25 08:51] LABS: CALCIUM 8.9 mg/dL (8.5-10.1); CREATININE 0.7 mg/dL (0.6-1.0); GFR 106.3; POTASSIUM 3.8 mmol/L (3.5-5.1)
[2019-09-25 08:57] LABS: ALBUMIN 3.8 g/dL (3.4-5.0); ALBUMIN/GLOBULIN RATIO 1.1 (1.0-1.7); MAGNESIUM 2.2 mg/dL (1.8-2.4); TOTAL BILIRUBIN 0.4 mg/dL (0.2-1.0); TOTAL PROTEIN 7.4 g/dL (6.4-8.2)
--- NOTE | 2019-09-25 08:59 | RAD ---
EXAM: Chest, 2 views. HISTORY: Shortness of breath. COMPARISON: 06/14/2017 FINDINGS: 2 views of the chest are obtained. There is no infiltrate, pleural effusion or pneumothorax. The heart is normal in size. There is a stable large calcified right paratracheal granuloma. IMPRESSION: No acute pulmonary finding. Electronically signed by: Emily Ayala MD (09/25/2019 8:56 AM) [email or web address]
--- NOTE | 2019-09-25 08:59 | EKG ---
[facility] [address] [place] [address] Test Date: 2019-09-25 Test Time: 07:52:42 Pat Name: COLBY FOSTER Department: Room: Gender: F [employer]: : 1965 Requested By: SABINO THOMAS Order Number: [id number] Reading MD: Measurements Intervals [place] Rate: 108 P: 113 UT: 184 QRS: 11 QRSD: 72 T: 43 QT: 314 QTc: 424 Interpretive Statements SINUS TACHYCARDIA NO SPECIFIC ECG ABNORMALITIES RI6.01 No previous ECG available for comparison
[2019-09-25] MEDS ORDERED: cefTRIAXone IV Push 1 GM VIAL. IVP ONE (10:45)
[2019-09-25] MEDS ORDERED: NAPR-683 PO (11:19)
[2019-09-25] MEDS ORDERED: DOXY100C2 PO (11:19)
[2019-09-25] MEDS ORDERED: METH4TAB2 PO (11:19)
[2019-09-25] MEDS ORDERED: ALBU2.5V8 IH (11:19)
[2019-09-25] MEDS ORDERED: BENZ100C PO (11:19)
--- NOTE | 2019-09-25 11:20 | PHYS DOC ---
Past Medical History Past Medical History: Arthritis, Asthma, Bronchitis, COPD, Fibromyalgia Past Surgical History: Appendectomy, Hysterectomy, Tonsillectomy, Tubal ligation Additional Past Surgical Histo: hernia, BLADDER SLING Alcohol Use: Occasionally Drug Use: None Adult General Chief Complaint Chief Complaint: CHEST PAIN HPI HPI Patient is a 54 year old female patient with history of COPD and currently smoking 1.5 pack a cigarettes a day and fibromyalgia and arthritis who presents with complaint of chest pain. Patient states she has had productive cough with greenish sputum for the last 2 weeks and shortness of breath, sore throat, nasal congestion and generalized weakness. Patient complaining of left upper chest sharp pain since 0030 this morning as a constant pain with radiation to her upper back and rated her pain 8/10 with increasing shortness of breath and dizziness and amputation without nausea, palpitation. Patient denies fever and chills, focal neuro deficit, neck pain and headache, sick contact. Review of Systems Review of Systems Constitutional: Denies fever or chills [] Eyes: Denies change in visual acuity, redness, or eye pain [] HENT: Reports nasal congestion and sore throat Respiratory: Reports cough and shortness of breath Cardiovascular: No additional information not addressed in HPI [] GI: Denies abdominal pain, nausea, vomiting, bloody stools or diarrhea [] : Denies dysuria or hematuria [] Musculoskeletal: Denies back pain or joint pain [] Integument: Denies rash or skin lesions [] Neurologic: Denies headache, focal weakness or sensory changes [] Endocrine: Denies polyuria or polydipsia [] All other systems were reviewed and found to be within normal limits, except as documented in this note. Current Medications Current Medications Current Medications Medications (Trade) Dose Ordered Sig/Marie Start Time Stop Time Status Last Admin Dose Admin Albuterol/ Ipratropium (Duoneb) 3 ml 1X ONCE 09/25/19 08:30 09/25/19 08:32 DC 09/25/19 09:08 3 ML Ceftriaxone Sodium (Rocephin) 1 gm 1X ONCE 09/25/19 10:45 09/25/19 10:46 DC Ketorolac Tromethamine (Toradol 30mg Vial) 30 mg 1X ONCE 09/25/19 08:30 09/25/19 08:32 DC 09/25/19 09:09 30 MG Methylprednisolone Sodium Succinate (SOLU-Medrol 125MG VIAL) 125 mg 1X ONCE 09/25/19 08:30 09/25/19 08:32 DC 09/25/19 09:09 125 MG Sodium Chloride 1,000 ml @ 1,000 mls/hr Q1H 09/25/19 08:28 09/25/19 09:27 DC 09/25/19 09:09 1,000 MLS/HR Allergies Allergies Allergies Coded Allergies Type Severity Reaction Last Updated Verified No Known Drug Allergies 08/09/18 No Physical Exam Physical Exam Constitutional: Well developed, well nourished, mild distress, non-toxic appearance. [] HENT: Normocephalic, atraumatic, bilateral external ears normal, oropharynx moist, no oral exudates, nose normal. [] Eyes: PERRLA, EOMI, conjunctiva normal, no discharge. [] Neck: Normal range of motion, no tenderness, supple, no stridor. [] Cardiovascular: Tachycardia, no murmur [] Lungs & Thorax: Bilateral breath sounds clear to auscultation , left chest wall reproducible pain Abdomen: Bowel sounds normal, soft, no tenderness, no masses, no pulsatile masses. [] Skin: Warm, dry, no erythema, no rash. [] Back: No tenderness, no CVA tenderness. [] Extremities: No tenderness, no cyanosis, no clubbing, ROM intact, no edema. [] Neurologic: Alert and oriented X 3, normal motor function, normal sensory function, no focal deficits noted. [] Psychologic: Affect normal, judgement normal, mood normal. [] Current Patient Data Vital Signs Vital Signs Date Time Temp Pulse Resp B/P (MAP) Pulse Ox O2 Delivery O2 Flow Rate FiO2 09/25/19 09:10 96 Room Air 09/25/19 07:45 98.4 108 20 117/80 (92) 98.4 Lab Values Laboratory Tests Test 09/25/19 07:53 09/25/19 09:20 White Blood Count 7.0 x10^3/uL (4.0-11.0) Red Blood Count 4.26 x10^6/uL (3.50-5.40) Hemoglobin 13.8 g/dL (12.0-15.5) Hematocrit 41.8 % (36.0-47.0) Mean Corpuscular Volume 98 fL (79-100) Mean Corpuscular Hemoglobin 32 pg (25-35) Mean Corpuscular Hemoglobin Concent 33 g/dL (31-37) Red Cell Distribution Width 13.6 % (11.5-14.5) Platelet Count 146 x10^3/uL (140-400) Neutrophils (%) (Auto) 74 % (31-73) H Lymphocytes (%) (Auto) 19 % (24-48) L Monocytes (%) (Auto) 6 % (0-9) Eosinophils (%) (Auto) 0 % (0-3) Basophils (%) (Auto) 1 % (0-3) Neutrophils # (Auto) 5.2 x10^3/uL (1.8-7.7) Lymphocytes # (Auto) 1.3 x10^3/uL (1.0-4.8) Monocytes # (Auto) 0.4 x10^3/uL (0.0-1.1) Eosinophils # (Auto) 0.0 x10^3/uL (0.0-0.7) Basophils # (Auto) 0.1 x10^3/uL (0.0-0.2) Sodium Level 139 mmol/L (136-145) Potassium Level 3.8 mmol/L (3.5-5.1) Chloride Level 102 mmol/L (98-107) Carbon Dioxide Level 26 mmol/L (21-32) Anion Gap 11 (6-14) Blood Urea Nitrogen 11 mg/dL (7-20) Creatinine 0.7 mg/dL (0.6-1.0) Estimated GFR (Cockcroft-Gault) 106.3 BUN/Creatinine Ratio 16 (6-20) Glucose Level 137 mg/dL (70-99) H Calcium Level 8.9 mg/dL (8.5-10.1) Magnesium Level 2.2 mg/dL (1.8-2.4) Total Bilirubin 0.4 mg/dL (0.2-1.0) Aspartate Amino Transferase (AST) 46 U/L (15-37) H Alanine Aminotransferase (ALT) 63 U/L (14-59) H Alkaline Phosphatase 64 U/L (46-116) Creatine Kinase 110 U/L (26-192) Troponin I Quantitative < 0.017 ng/mL (0.000-0.055) CC-Szf-X-Type Natriuretic Peptide 50 pg/mL (0-124) Total Protein 7.4 g/dL (6.4-8.2) Albumin 3.8 g/dL (3.4-5.0) Albumin/Globulin Ratio 1.1 (1.0-1.7) Lipase 133 U/L (73-393) Lactic Acid Level 1.0 mmol/L (0.4-2.0) Laboratory Tests 09/25/19 07:53 Laboratory Tests 09/25/19 07:53 EKG EKG EKG interpreted by me. EKG at 0 752 showed sinus tachycardia at rate of 108, normal And QT intervals, no acute ST and T-wave elevation. Radiology/Procedures Radiology/Procedures [][facility] [address] [place] [address] IMAGING REPORT Signed PATIENT: COLBY FOSTER ACCOUNT: [id number] : 1965 LOCATION: ER AGE: 54 SEX: F EXAM STATUS: REG ER ORD. PHYSICIAN: SABINO THOMAS MD REASON: shortness of breath and cough and chest pain PROCEDURE: CHEST PA & LATERAL EXAM: Chest, 2 views. HISTORY: Shortness of breath. COMPARISON: 06/14/2017 FINDINGS: 2 views of the chest are obtained. There is no infiltrate, pleural effusion or pneumothorax. The heart is normal in size. There is a stable large calcified right paratracheal granuloma. IMPRESSION: No acute pulmonary finding. Electronically signed by: Emily Burgos MD (09/25/2019 8:56 AM) [place] [address] DICTATED and SIGNED BY: EMILY BURGOS MD DATE: 09/25/19 0856 Course & Med Decision Making Course & Med Decision Making Pertinent Labs and Imaging studies reviewed. (See chart for details) Evaluation of patient in ER showed 54-year-old female patient with score of 2 and history of COPD and smoking complaining of cough for 2 weeks and chest wall pain since this morning. Patient had reproducible left-sided chest pain. EKG chest x-ray and labs was unremarkable. Patient felt better with treatment in ER. Plan discharge patient home with diagnose of bronchitis and COPD exacerbation and chest wall pain. Dragon Disclaimer Dragon Disclaimer This electronic medical record was generated, in whole or in part, using a voice recognition dictation system. Departure Departure Impression: Primary Impression: Acute bronchitis Additional Impressions: COPD exacerbation Chest wall pain Tobacco abuse Tobacco abuse counseling Disposition: HOME, SELF-CARE (at 11:15) Condition: IMPROVED Referrals: FLOR OSMAN MD (PCP) Patient Instructions: Acute Bronchitis, Chronic Obstructive Pulmonary Disease Exacerbation, Smoking Cessation, Tips For Success Additional Instructions: Drink plenty of liquids Follow-up with your primary care physician in 3-5 days Return to ER if not getting better Quit smoking Scripts Benzonatate (TESSALON PERLE) 100 Mg Capsule 1 CAP PO TID for cough, #21 CAP Prov: SABINO THOMAS MD 09/25/19 Albuterol Sulfate (PROAIR HFA INHALER) 8.5 Gm Hfa.aer.ad 2 PUFF IH PRN Q4-6HRS PRN for wheezing for 21 Days, #1 INHALER 0 Refills Prov: SABINO THOMAS MD 09/25/19 Naproxen (NAPROSYN) 500 Mg Tablet 1 TAB PO BID for pain, #20 TAB Prov: SABINO THOMAS MD 09/25/19 Methylprednisolone (MEDROL) 4 Mg Tab.ds.pk 1 PKG PO UD for inflammation, #1 PKG Prov: SABINO THOMAS MD 09/25/19 Doxycycline Hyclate (DOXYCYCLINE HYCLATE) 100 Mg Capsule 1 CAP PO BID, #14 CAP Prov: SABINO THOMAS MD 09/25/19 The HEART Score for CP Pts HEART Score for Chest Pain: HEART Score for Chest Pain Response (Comments) Value History Slighlty/Non-Suspicious 0 ECG Normal 0 Age >45 - < 65 1 Risk Factors 1 or 2 Risk Factors 1 Troponin < Normal Limit 0 Total 2 Risk Factors: Risk Factors: DM, Current or recent (<one month) smoker, HTN, HLP, family history of CAD, obesity. Risk Scores: Score 0 - 3: 2.5% MACE over next 6 weeks - Discharge Home Score 4 - 6: 20.3% MACE over next 6 weeks - Admit for Clinical Observation Score 7 - 10: 72.7% MACE over next 6 weeks - Early Invasive Strategies Problem Qualifiers Primary Impression: Acute bronchitis Bronchitis organism: unspecified organism Qualified Codes: J20.9 - Acute bronchitis, unspecified SABINO THOMAS MD Sep 25, 2019 11:20
[2019-09-25 11:31] VITALS: BP 116/67
== END 2019-09-25 11:50 | disposition home or self-care (01) ==
LOC: ER 07:43
DX: J44.1 Chronic obstructive pulmonary disease with (acute) exacerbation (principal); J20.9 Acute bronchitis, unspecified; R07.89 Other chest pain; Z71.6 Tobacco abuse counseling; Z72.0 Tobacco use; R42 Dizziness and giddiness
CPT/HCPCS: 36415; 71046; 80053; 82550; 83605; 83690; 83735; 83880; 84484; 85025; 93005; 94640; 96361; 96374; 96375; 99285; J0696; J1885; J2930; J7030; J7620